=== PATIENT | female | born 1990 | race Caucasian/White ===

== ENCOUNTER 2024-05-08 09:14 | Outpatient (CLI) | payer BC, SELFPAY | END 2024-05-08 09:15 | disposition home or self-care (01) | PROVIDERS: Visit Provider Midwife | DX: Z34.93 Encounter for supervision of normal pregnancy, unspecified, third trimester (principal); Z3A.30 30 weeks gestation of pregnancy | CPT/HCPCS: 80306; 86592; 86703; 86704; 86706; 86762; 86787; 86803; 86850; 86900; 86901; 87086; 87340 ==

== ENCOUNTER 2024-06-19 10:16 | Outpatient (CLI) | payer BC, SELFPAY | END 2024-06-19 10:17 | disposition home or self-care (01) | LOC: NFLDREF 06-22 06:49 | PROVIDERS: Visit Provider Advanced Practice Midwife | DX: Z34.83 Encounter for supervision of other normal pregnancy, third trimester (principal) | CPT/HCPCS: 87081; 87653 ==

== ENCOUNTER 2024-06-25 08:49 | Outpatient (CLI) | payer BC, SELFPAY ==
[2024-06-25] VITALS (22 sets, daily range): BP systolic 114; BP diastolic 74; PULSE 58–101; O2SAT 98–100
[2024-06-25] MEDS: TERBUTALINE 1 MG/ML INJ 0.25 MG SUBCUT (10:04)
--- NOTE | 2024-06-25 11:52 | P.PCN_ITS ---
Procedure Note Time Seen by Provider: 11:00 Date Seen: 06/25/24 Date of procedure: 06/25/24 Will [facility] bill your pro fee for this procedure?: Yes Pre-op diagnosis: 37 weeks gestation. Katie breech presentation. Post-op diagnosis: same Procedure: External cephalic version. Procedure Description: PREOPERATIVE DIAGNOSIS: 1. Intrauterine at 37 0/7 weeks gestation. 2. Katie breech presentation. POSTOPERATIVE DIAGNOSIS: 1. Intrauterine at 37 0/7 weeks gestation. 2. Katie breech presentation. PROCEDURE: 1. Nonstress test. 2. Limited OB ultrasound. 3. External cephalic version. SURGEON: Stormy. PRECINCT POLICE CAPTAIN: Gisselle. ANESTHESIA: None. COMPLICATIONS: None. FINDINGS: Nonstress test: heart rate baseline 135 beats per minute, good variability, 15 x 15 accelerations present, no decelerations, category 1. Limited OB ultrasound: Single, living, intrauterine gestation in a katie breech presentation with the back along the maternal left, grossly normal amniotic fluid volume, posterior placenta. PROCEDURE NOTE: A nonstress test was performed, which was reactive and reass uring. A limited OB ultrasound was performed at the bedside to determine position. Findings noted above. Informed consent was obtained for external cephalic version. Terbutaline 0.25 mg was administered to the patient subcutaneously. External cephalic version was attempted. Dr. Pitts applied upward pressure to the breech, I applied pressure to the vertex, and we attempted to gently coax the fetus in a forward roll in a counter-clockwise direction. This attempt was unsuccessful. A 2nd attempt was made to coax the infant in a forward roll in a counter-clockwise direction, as I applied pressure to the breech and Dr. Pitts applied pressure to the vertex. This attempt was also unsuccessful. A third attempt was made to coax the in a backward roll in a clockwise direction, and this was also unsuccessful. Lack of success was determined to be due to inability to disengage the breech from pelvis. heart tones were noted to be normal between and after the attempts. The patient tolerated the procedure well, with a slight vasovagal response after each attempt that resolved with left lateral recumbent positioning. monitoring for 1 hour after the procedure was continued to be reassuring. Anesthesia: none Condition: stable Disposition: observation
--- NOTE | 2024-06-25 12:01 | PC.OBNST ---
NST Note NST Note Start: 06/25/24 08:54 Freq: ONCE Status: Active Protocol: Document 06/25/24 12:00 CHARLES (Rec: 06/25/24 12:01 CHARLES Desktop) NST Note 5 Para (# of births) 1 EDC 07/16/24 Gestational Age In Weeks & Days 37 Weeks & 0 Days Patient Presented with Complaint(s) of Other Other Complaints ECV Reactive Yes Appropriate for Gestational Age Yes PALLAVI Druan RN Date 06/25/24 Reactive Yes Appropriate for Gestational Age Yes PALLAVI Ahn RNC Date 06/25/24 OB NST charge Yes Complete NST Note via Write Note Yes The provider's electronic signature indicates the NST is reactive/appropriate for gestational age. *Note to provider: If an addendum is required, open the patient's chart and click on the note under the Nurse/Allied Health tab.
== END 2024-06-25 11:45 | disposition home or self-care (01) ==
LOC: OB CLI 08:50 → OB 08:52
PROVIDERS: Visit Provider Obstetrics & Gynecology
DX: O32.1XX0 Maternal care for breech presentation, not applicable or unspecified (principal); Z3A.37 37 weeks gestation of pregnancy
CPT/HCPCS: 59025; 59412; 76815; G0463; J3105

== ENCOUNTER 2024-07-10 05:36 | Inpatient (IN) | payer BC, SELFPAY ==
[2024-07-10] VITALS (34 sets, daily range): BP systolic 90–133; BP diastolic 53–77; PULSE 60–87; RESP 16–22; TEMP 36.2–36.9; O2SAT 95–99; BMI 28.2
[2024-07-10 06:21] LABS: Hemoglobin* 13.7 gm/dL (12.0-16.0)
--- NOTE | 2024-07-10 08:31 | PM.OBPRCCS ---
Procedure Date of procedure: 07/10/24 Pre-op diagnosis: 1. 39 1/7 weeks gestation 2. katie breech presentation Post-op diagnosis: same Procedure Done: Global Will [facility] bill your pro fee for this procedure?: Yes Blood Loss Measurement Type: QBL (1119 mL) Bakri Used: No IV fluids (mL): 1,700 Surgeon: Apryl Burrows MD Anesthesia Type: Spinal Findings: Live-born male , katie breech presentation. Apgars 8 and 9 at 1 and 5 minutes respectively. Normal-appearing uterus, tubes, and ovaries. Procedure Name: Primary low transverse section. Procedure Description: After obtaining informed consent, the patient was taken to the operating room where spinal anesthesia was obtained and found to be adequate. She was prepared and draped in the normal sterile fashion in the dorsal supine position with a leftward tilt. A Pfannenstiel skin incision was made with a scalpel. This incision was carried down to the underlying layer of fascia with the Bovie. The fascia was incised in the midline and the incision extended laterally. The superior and inferior aspects of the fascial incision were grasped with Morena clamps, elevated and the underlying rectus muscles dissected off sharply and with electrocautery. The rectus muscles were then in the midline. The Matthias O retractor was then placed into the incision. The lower uterine segment was then incised in a transverse fashion with the scalpel. Upon entry into the uterus, clear amniotic fluid was noted. The uterine incision was extended laterally with blunt finger fractionation. The infant's head was breech was delivered and the elevated, the fetus was rotated to a back-up position, the legs were delivered, then the torso and shoulders, followed by the had while maintaining neck flexion. The nose and mouth were suctioned with the bulb suction. The cord was doubly clamped and cut, and the was handed off the field to Abby Martines PA-C for evaluation. The placenta was delivered spontaneously with umbilical cord traction and fundal massage. The uterus was cleared of all clots and debris. The uterine incision was reapproximated in a running locking fashion with a 0 chromic suture. A 2nd layer of the same suture was used to imbricate in horizontal fashion. One additional figure of X suture of 2-0 chromic was placed along the right lateral aspect of the hysterotomy incision for hemostasis. The gutters were irrigated and suctioned. All instruments and retractors were removed. The anterior peritoneum was reapproximated in a running fashion with a 3-0 Vicryl suture. The subfascial tissues were carefully inspected and hemostasis assured. The fascia was reapproximated in a running fashion with a looped 0 Maxon suture. The subcutaneous tissues were copiously irrigated. Hemostasis was assured. The skin was closed in a subcuticular fashion with 4-0 Vicryl. Surgical glue and dressing were applied. The patient tolerated the procedure well. Sponge, lap, needle, and instrument counts were reported as correct x2. The patient was taken to the recovery room, awake, and in stable condition. She did receive 2 grams of IV Ancef preoperatively. Complications: None Pathology: none sent Surgery Debrief Performed: Yes Condition: stable Disposition: floor
--- NOTE | 2024-07-10 08:48 | P.ANES_ITS ---
Anesthesia Charges Start Date/Time Anesthesia Start Date: 07/10/24 Anesthesia Start Time: 07:15 Stop Date/Time Anesthesia Stop Date: 07/10/24 Anesthesia Stop Time: 08:41 Coding CPT Codes CPT Codes: ANESTH CS DELIVERY - 68663 ([id number]) P2 - PATIENT W/MILD SYST DISEASE, QZ - ADMINISTRATIVE REPRESENTATIVE SVC W/O MED SPA MANAGER BY
--- NOTE | 2024-07-10 08:48 | W.ANESCHARGE ---
Anesthesia Charges Start Date/Time Anesthesia Start Date: 07/10/24 Anesthesia Start Time: 07:15 Stop Date/Time Anesthesia Stop Date: 07/10/24 Anesthesia Stop Time: 08:41 Coding CPT Codes CPT Codes: ANESTH CS DELIVERY - 38262 ([id number]) P2 - PATIENT W/MILD SYST DISEASE, QZ - SEED CLEANING MANAGER SVC W/O PUTTY MIXER AND APPLIER BY
--- NOTE | 2024-07-10 08:50 | W.PM.NB ---
Nerve Block Nerve Block Time Seen by Provider: 08:30 Date Seen: 07/10/24 Type of block requested by surgeon for post-operative analgesia: TAP Side: bilateral Time out performed: Yes Verification of patient name: Yes Verification of date of : Yes Name of person performing procedure: [place] Continuous monitoring Was continuous monitoring of O2 sat, B/P, registered nurse cardiac telemetry, recorded every 15 minutes?: Yes Procedure Ultrasound guided. Images saved: Yes Medications given in 5ml increments after negative aspiration: Marcaine %: 0.25 mL: 30 and Exparel mL: 10 Needle gauge: 20 Patient tolerated procedure well: Yes Block Charges Block Charge (with Pro Fee): TAP Bilateral Use of Ultrasound Machine for Block: Yes- US Guidance/pain block
[2024-07-10] MEDS: LACTATED RINGERS 1000 ML 1,000 ML 125 ML IV (12:10)
[2024-07-10] MEDS: KETOROLAC 30 MG/ML inj IVP ×2 (14:21→20:24)
[2024-07-10] MEDS: SODIUM CHLORIDE 0.9 % (FLUSH) 10 ML SYRINGE IVF (20:24)
[2024-07-11 01:31] VITALS: BP 104/61; PULSE 62; RESP 16; TEMP 36.6; O2SAT 97
[2024-07-11] MEDS: SODIUM CHLORIDE 0.9 % (FLUSH) 10 ML SYRINGE IVF (02:14)
[2024-07-11] MEDS: KETOROLAC 30 MG/ML inj IVP ×2 (02:14→08:09)
[2024-07-11 04:37] VITALS: RESP 16; O2SAT 98
[2024-07-11 04:44] VITALS: BP 98/60; PULSE 62; RESP 16; TEMP 36.6; O2SAT 97
[2024-07-11 07:13] LABS: Hemoglobin* 10.2 gm/dL (12.0-16.0)
--- NOTE | 2024-07-11 07:26 | PM.OBPNVD1 ---
OB - PN:Subj Subjective Date Seen: 07/11/24 Narrative: Ping is a 33 y.o. who was admitted to [facility] for primary C/S for breech position.? She had an uncomplicated primary .? ? The patient feels well.? The pain is well controlled with current medications.? She has no new complaints.? She is breast feeding and reports things are going well.? the patient has done well.? Vitals have been stable.? She has remained afebrile.? Has a good appetite, is tolerating a general diet.? She is voiding without difficulty.? She is passing gas and has not had a bowel movement.? She is ambulating and denies any dizziness.? Has Small amount of rubra lochia.? OB - PN: Obj Exam Physical Exam: Vital signs: Temp Pulse Resp BP Pulse Ox O2 Del Method 97.9 F 62 16 98/60 97 Room Air 07/11/24 04:44 07/11/24 04:44 07/11/24 04:44 07/11/24 04:44 07/11/24 04:44 07/11/24 04:44 Narrative: GENERAL APPEARANCE:? normal affect, alert, no distress MOOD:? appropriate CHEST:? clear to auscultation HEART:? regular rate and rhythm ABDOMEN:? soft, non-tender the uterine fundus is firm At Umbilicus, Midline and is appropriate for the stage of recovery. PERINEUM:?intact EXTREMITIES:? normal and trace edema Incision: Dressing clean dry and intact, due for removal today OB - PN: A/P Delivery Assessment and Plan (1) Status post delivery: Status: Acute (2) care and examination of lactating mother: Status: Acute (3) care following delivery: Status: Acute Plan day: 1 Plan: routine care Comments: Assessment/Plan?G 5 P 2 status post uncomplicated primary .? ?? 1.? Continue route PP cares? 2.? .? May see if desired? 3.? Anticipate discharge home tomorrow or the following day per pt preference? ?
[2024-07-11 07:52] VITALS: RESP 16; O2SAT 98
[2024-07-11] MEDS: DOCUSATE SODIUM 100 MG CAPSULE PO (08:08)
[2024-07-11 08:53] VITALS: BP 113/71; PULSE 62; RESP 16; TEMP 37.1; O2SAT 98
[2024-07-11 13:36] LABS: Rapid Plasma Reagin (RPR) Non Reactive (Non Reactive)
[2024-07-11] MEDS: IBUPROFEN 600 MG TABLET PO ×2 (15:06→21:49)
[2024-07-11] MEDS: FERROUS SULFATE 325 MG TABLET PO (17:24)
[2024-07-11] MEDS: ACETAMINOPHEN 500 MG TABLET 1000 MG PO (17:55)
[2024-07-11 17:56] VITALS: BP 117/75; PULSE 62; RESP 16; TEMP 36.8; O2SAT 98
[2024-07-12 00:08] VITALS: BP 126/71; PULSE 76; RESP 16; TEMP 36.6; O2SAT 96
[2024-07-12] MEDS: ACETAMINOPHEN 500 MG TABLET 1000 MG PO ×4 (00:08→21:15)
[2024-07-12] MEDS: IBUPROFEN 600 MG TABLET PO ×4 (04:26→23:57)
[2024-07-12] MEDS: DOCUSATE SODIUM 100 MG CAPSULE PO (07:32)
--- NOTE | 2024-07-12 07:39 | P.DS_ITS ---
DS: Providers Provider Date Seen: 07/12/24 Date of admission: 07/10/24 05:36 Primary care physician: Not a Local Provider Admitting Clinician: Apryl Burrows MD Attending Physician on discharge: Apryl Burrows MD Date of Discharge: 07/12/24 DS: Diagnosis Discharge Diagnosis (1) care and examination of lactating mother: Status: Acute (2) Status post delivery: Status: Acute Exam Narrative: Exam Narrative: GENERAL APPEARANCE:? normal affect, alert, no distress? MOOD:? appropriate? CHEST:? clear to auscultation and percussion? HEART:? regular rate and rhythm? ABDOMEN:? soft, non-tender the uterine fundus is U/2 and is appropriate for the stage of recovery. Incision is well approximated without drainage, redness or edema.? EXTREMITIES:? normal and no edema? Const: Vital Signs, click to edit/add: Vital Signs - 24 hr 07/11/24 07:52 07/11/24 08:53 07/11/24 17:56 Temperature 98.7 F 98.2 F Pulse Rate [Pulse Oximeter] 62 62 Respiratory Rate 16 16 16 Blood Pressure [Ri ght Arm] 113/71 117/75 Pulse Oximetry 98 98 Oxygen Delivery Me thod Room Air Room Air 07/12/24 00:08 Temperature 97.8 F Pulse Rate [Pulse Oximeter] 76 Respiratory Rate 16 Blood Pressure [Ri ght Arm] 126/71 Pulse Oximetry 96 Oxygen Delivery Me thod Room Air Documenting provider has reviewed patient's vital signs: yes OB - DS: Summary Hospital Course Hospital Course: Ping is a 33 year old G 5 P 2 at 39.1 weeks gestation that was admitted to the Center on 07/10/24 for scheduled delivery due to breech presentation. She had an uncomplicated delivery. She delivered a viable male . She is breast feeding and supplementing using the SNS feeding system. Encouraged PRN r/t her history of insufficient glandular tissue. the patient has done well. Her pain is well controlled with current medications.? She has no new complaints.? Urinary output is adequate and she is voiding without difficulty.? Has a good appetite, is tolerating a general diet, is passing flatus, and has had a bowel movement.? Has scant amount of rubra lochia.? She is ambulating well. She is planning NFP for contraception and I did encourage condoms/diaphragm as well. Peripartum Data Infant delivery method: Primary C/S; Non-Labored Procedures: Procedures Operation Date: 07/10/24 07:15 Actual Procedure Side Surgeon p Primary Section Apryl Burrows MD [place] Infant Gender: Male Discharge Plan: Home Status at Discharge Functional status at discharge: independent ambulation Overall status at discharge: patient is progressing back to baseline Time Spent with Patient Time attestation: Total time spent providing and/or coordinating discharge services: Discharge Plan Discharge Disposition: Home, Self-Care Date of Admission: 07/10/24 05:36 Attending Provider on Discharge: Shanae Mason Primary Care Provider: Provider,Not a Local Condition: Stable Anticipated Discharge Date/Time: 07/12/24 10:00 Discharge Medications: New docusate sodium 100 mg Capsule 100 mg PO DAILY Qty: 180 0RF Rx Instructions: Take 1-2 tablets daily as needed for constipation. ferrous sulfate 325 mg (65 mg iron) Tablet 325 mg PO Q48H Qty: 90 0RF ibuprofen 600 mg Tablet 600 mg PO Q6H PRN (Reason: Pain) Qty: 90 0RF Continued albuterol sulfate 90 mcg/actuation HFA aerosol inhaler 2 puff inhalation Q6H budesonide-formoterol 80-4.5 mcg/actuation HFA aerosol inhaler 1 puff inhalation Q12H PRN Patient Comments: [NO ORIGINAL SIG] albuterol sulfate 2.5 mg /3 mL (0.083 %) solution for nebulization 2.5 mg inhalation Q6H diphenhydramine HCl [Benadryl] 25 mg capsule 25 mg PO QHS PRN Classic 28 mg iron- 800 mcg tablet 1 tab PO DAILY milk peyhdvc-YRK-aoxsdu-turmer 250-250 mg tablet 1 tab PO DAILY magnesium glycinate 100 mg magnesium capsule 200 mg PO DAILY Discharge Orders: Discharge Order (Routine); Ordered 07/12/24 Ordered By: Shanae Mason Patient Education: OB /Breast Feeding Additional Instructions: Discharge instructions were reviewed with the patient including signs and symptoms of infection and home going medications? ?? Activity restrictions:? Lifting Restrictions: 20 pounds for 6 weeks? No high-impact or core exercises for 6 weeks.?? No not submerge incision under water X 2 weeks?? Nothing vaginally for 6 weeks: no tampons or intercourse? Do not drive while taking narcotic pain medication(s)? Off Work or School for 8 weeks? ?? Symptoms to report to doctor:? -Bleeding that saturates more than one pad per hour? -Passing clots larger than the size of a golf ball? -Pain not relieved by prescribed medication? -Fever above 100.4 degrees Fahrenheit? -A foul vaginal odor? -Difficulty in emotions, mood and functions? -Thoughts of hurting yourself and/or ? -Painful, reddened area in your breast? -Any drainage, redness or tenderness in your IV/epidural site? -Severe headache that doesn't improve after taking medications? -Changes in vision, including temporary loss of vision, blurred vision, and/or light sensitivity? -Upper abdominal pain (usually under ribs on the right side)? -Decrease in urination or painful, frequent urinating? -Chest pain? -Shortness of breath? -Tenderness or pain with redness and/swelling in the calf(s) of your leg? Follow up visits:?? 1. 1 week visit:? incision check.? 2. 2-week visit: discuss infant feeding/care concerns, review control options and screen for anxiety/depression.? 3. 6-week visit for an annual exam.? ?? consultation services are available to all mothers and babies for the first year after delivery.? To make an appointment, please call [phone].? Activity Level: Activity as Tolerated Discharge Diet: Regular Follow Up Appointments: [facility] [Provider Group] Provider,Not a Local [Primary Care Provider] - Forms: [employer] Info Instructions
[2024-07-12 09:01] VITALS: BP 121/80; PULSE 74; RESP 16; TEMP 36.6; O2SAT 97
[2024-07-12 16:09] VITALS: BP 114/74; PULSE 64; RESP 16; TEMP 36.8; O2SAT 97
[2024-07-12 22:24] VITALS: BP 120/85; PULSE 66; RESP 16; TEMP 36.3; O2SAT 98
[2024-07-13] MEDS: ACETAMINOPHEN 500 MG TABLET 1000 MG PO ×2 (03:21→09:23)
[2024-07-13 04:20] VITALS: BP 123/82; PULSE 63; RESP 16; TEMP 36.6; O2SAT 97
[2024-07-13] MEDS: IBUPROFEN 600 MG TABLET PO (06:04)
[2024-07-13 08:18] VITALS: BP 115/73; PULSE 82; RESP 16; TEMP 36.6; O2SAT 98
[2024-07-13] MEDS: DOCUSATE SODIUM 100 MG CAPSULE PO (09:07)
--- NOTE | 2024-07-13 09:43 | P.DS_ITS ---
DS: Providers Provider Date Seen: 07/13/24 Date of admission: 07/10/24 05:36 Primary care physician: Not a Local Provider Admitting Clinician: Apryl Burrows MD Attending Physician on discharge: Sheldon Aranda MD Date of Discharge: 07/13/24 DS: Diagnosis Discharge Diagnosis (1) Status post delivery: Status: Acute Exam Narrative: Exam Narrative: GENERAL APPEARANCE:? normal affect, alert, no distress MOOD:? appropriate CHEST:? clear to auscultation HEART:? regular rate and rhythm ABDOMEN:? soft, non-tender the uterine fundus is At Umbilicus, Midline and is appropriate for the stage of recovery. EXTREMITIES:? normal and no edema Incision: Healing well, no surrounding erythema, abnormal induration or discharge. Const: Vital Signs, click to edit/add: Vital Signs - 24 hr 07/12/24 16:09 07/12/24 22:24 07/13/24 04:20 Temperature 98.3 F 97.4 F L 97.9 F Pulse Rate [Pulse Oximeter] 64 66 63 Respiratory Rate 16 16 16 Blood Pressure [Ri ght Arm] 114/74 120/85 123/82 Pulse Oximetry 97 98 97 Oxygen Delivery Me thod Room Air Room Air Room Air 07/13/24 08:18 Temperature 98 F Pulse Rate [Pulse Oximeter] 82 Respiratory Rate 16 Blood Pressure [Ri ght Arm] 115/73 Pulse Oximetry 98 Oxygen Delivery Me thod Room Air OB - DS: Summary Hospital Course Hospital Course: The patient is a 33 year old G 5 P 2032 at 39 1/7 weeks gestation that was admitted to the [facility] on 07/10/24 for delivery due to breech presentation. She had a complicated delivery. She delivered a viable male infant. She is breast feeding. the patient has done well. Peripartum Data delivery method: Primary C/S; Non-Labored Laceration description: None Procedures: Procedures Operation Date: 07/10/24 07:15 Actual Procedure Side Surgeon p Primary Section Apryl Burrows MD complications: none [place] Gender: Male Discharge Plan: Home Time Spent with Patient Time attestation: Total time spent providing and/or coordinating discharge services: Discharge Plan Discharge Disposition: Home, Self-Care Date of Admission: 07/10/24 05:36 Attending Provider on Discharge: Karo Aranda Primary Care Provider: Provider,Not a Local Condition: Stable Anticipated Discharge Date/Time: 07/13/24 09:46 Discharge Medications: New docusate sodium 100 mg Capsule 100 mg PO DAILY Qty: 180 0RF Rx Instructions: Take 1-2 tablets daily as needed for constipation. ferrous sulfate 325 mg (65 mg iron) Tablet 325 mg PO Q48H Qty: 90 0RF ibuprofen 600 mg Tablet 600 mg PO Q6H PRN (Reason: Pain) Qty: 90 0RF Continued albuterol sulfate 90 mcg/actuation HFA aerosol inhaler 2 puff inhalation Q6H budesonide-formoterol 80-4.5 mcg/actuation HFA aerosol inhaler 1 puff inhalation Q12H PRN Patient Comments: [NO ORIGINAL SIG] albuterol sulfate 2.5 mg /3 mL (0.083 %) solution for nebulization 2.5 mg inhalation Q6H diphenhydramine HCl [Benadryl] 25 mg capsule 25 mg PO QHS PRN Classic 28 mg iron- 800 mcg tablet 1 tab PO DAILY milk inxopum-JLS-yjwulr-turmer 250-250 mg tablet 1 tab PO DAILY magnesium glycinate 100 mg magnesium capsule 200 mg PO DAILY Discharge Orders: Discharge Order (Routine); Ordered 07/13/24 Ordered By: Karo Aranda Patient Education: OB /Breast Feeding Additional Instructions: Discharge instructions were reviewed with the patient including signs and symptoms of infection and home going medications? ?? Activity restrictions:? Lifting Restrictions: 20 pounds for 6 weeks? No high-impact or core exercises for 6 weeks.?? No not submerge incision under water X 2 weeks?? Nothing vaginally for 6 weeks: no tampons or intercourse? Do not drive while taking narcotic pain medication(s)? Off Work or School for 8 weeks? ?? Symptoms to report to doctor:? -Bleeding that saturates more than one pad per hour? -Passing clots larger than the size of a golf ball? -Pain not relieved by prescribed medication? -Fever above 100.4 degrees Fahrenheit? -A foul vaginal odor? -Difficulty in emotions, mood and functions? -Thoughts of hurting yourself and/or ? -Painful, reddened area in your breast? -Any drainage, redness or tenderness in your IV/epidural site? -Severe headache that doesn't improve after taking medications? -Changes in vision, including temporary loss of vision, blurred v ision, and/or light sensitivity? -Upper abdominal pain (usually under ribs on the right side)? -Decrease in urination or painful, frequent urinating? -Chest pain? -Shortness of breath? -Tenderness or pain with redness and/swelling in the calf(s) of your leg? Follow up visits:?? 1. 2-week visit: incision check, discuss feeding/care concerns, review control options and screen for anxiety/depression.? 2. 6-week visit for an annual exam.? ?? consultation services are available to all mothers and babies for the first year after delivery.? To make an appointment, please call [phone].? Activity Level: Activity as Tolerated Discharge Diet: Regular Follow Up Appointments: [facility] [Provider Group] Provider,Not a Local [Primary Care Provider] - Forms: [employer] Info Instructions
[2024-07-13] MEDS: FERROUS SULFATE 325 MG TABLET PO (11:44)
--- NOTE | 2024-07-16 14:36 | W.PM.H&PU ---
History & Physical Update History & Physical Update H&P Reviewed and patient assessed: No changes noted H&P Updates: The patient presented for care on 07/10/2024. No significant changes noted from the H&P that I dictated on 06/28/2024. Fetus still in a breech presentation. Plan primary low transverse section.
--- NOTE | 2024-08-05 12:33 | W.PM.H&PU ---
History & Physical Update History & Physical Update H&P Reviewed and patient assessed: No changes noted
== END 2024-07-13 11:48 | disposition home or self-care (01) | DRG 540 ==
PROVIDERS: Admitting Provider Obstetrics & Gynecology; Visit Provider Obstetrics & Gynecology
PROC: 10D00Z1 Extraction of Products of Conception, Low, Open Approach (ICD-10-PCS; CPT 59514; principal; 2024-07-10 07:15)
DX: O32.1XX0 Maternal care for breech presentation, not applicable or unspecified (principal); Z3A.39 39 weeks gestation of pregnancy; Z37.0 Single live birth
CPT/HCPCS: 01961; 36415; 64488; 76942; 85018; 86592; 86850; 86900; 86901; A4314; A9270; J0665; J0666; J1100; J1885; J2274; J2371; J2405; J2590; J7120

== ENCOUNTER 2024-09-04 10:28 | Outpatient (CLI) | payer BC, SELFPAY ==
--- NOTE | 2024-09-04 10:45 | CRLHL7_ITS ---
For Patients: As a result of the Century Cures Act, medical imaging exams and procedure reports are released immediately into your electronic medical record. You may view this report before your referring provider. If you have questions, please contact your health care provider. CLINICAL HISTORY: Ovarian cysts COMPARISON: 02/27/2024 TECHNIQUE: 2D vasquez-scale ultrasound. In addition, color Doppler and spectral Doppler analysis was performed of the pelvis using a transabdominal and transvaginal approach. Transvaginal imaging performed to better visualize the endometrial stripe and ovaries. FINDINGS: The myometrium has a normal uniform echotexture. The uterus measures 7.1 x 4.2 x 5.1 cm. The endometrial lining appears normal and measures 4.9 mm in thickness. The right ovary measures 9.8 x 7.4 x 5.9 cm in size and the left ovary is not visualized. The right ovary demonstrates normal arterial and venous blood flow on color Doppler and spectral Doppler analysis. There are no suspicious fluid collections within the cul-de-sac. Simple right ovarian cyst is present measuring 4.9 x 7.0 x 4.9 cm. Additional right ovarian cyst measures 3.8 x 2.7 x 2.2 cm. No internal color Doppler flow. No solid component or papillary projection. IMPRESSION: Simple right ovarian cysts measuring up to 7 cm. No suspicious findings. Dictated by Michele Neri MD @ 09/04/2024 12:33:42 PM (Electronically Signed)
== END 2024-09-04 10:29 | disposition home or self-care (01) ==
LOC: US 10:28
PROVIDERS: Visit Provider Physician Assistant
DX: N83.209 Unspecified ovarian cyst, unspecified side (principal); N83.291 Other ovarian cyst, right side
CPT/HCPCS: 76830; 76856; 93976